=== PATIENT | female | born 1960 | race Hispanic/Latino ===

== ENCOUNTER 2017-05-30 06:25 | Emergency (ER) | payer BC ==
[2017-05-30 06:35] VITALS: TEMP 97.8; O2SAT 100
[2017-05-30] MEDS ORDERED: Sodium Chloride 0.9% 1,000 ML IV STA (06:53)
[2017-05-30] MEDS ORDERED: DiphenhydrAMINE 50 mg/ml Inj IV STA (06:53)
--- NOTE | 2017-05-30 06:59 | ED PDOC ---
HPI: Allergic Reaction Time Seen by Provider: 05/30/17 06:52 Chief Complaint (Nursing): Allergic Reaction Chief Complaint (Provider): Allergic Reaction History Per: Patient History/Exam Limitations: no limitations Onset/Duration Of Symptoms: Days (x3), Intermittent Episodes Current Symptoms Are (Timing): Still Present Possible Cause: Unknown Associated Symptoms: Skin Rash, Swelling (lip swelling), Trouble Swallowing ( throat tightness), Chest Pain (chest tightness) Home/EMS Treatment: Benadryl Additional Complaint(s): 56 year old female presents to ED with complaints of intermittent episodes of a pruritic rash x3 days and has no past medical history. (+) throat tightness, lip swelling, and mild chest tightness since this morning. (-) fever, nausea, vomiting, diarrhea, or cough. Arrival of new symptoms this morning prompted ED visit. 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 Denies recent travel or allergen exposure. PCP: Ralf Mendoza Past Medical History Reviewed: Historical Data, Nursing Documentation, Vital Signs Vital Signs: Last Vital Signs Temp 97.8 F 05/30/17 06:32 Pulse 84 05/30/17 06:32 Resp 18 05/30/17 06:32 BP 121/91 H 05/30/17 06:32 Pulse Ox 100 05/30/17 06:32 - Medical History PMH: No Chronic Diseases - Surgical History Surgical History: No Surg Hx - Family History Family History: States: No Known Family Hx - Social History Current smoker - smoking cessation education provided: No Ex-Smoker (has not smoked in the last 12 months): No Alcohol: None Drugs: Denies - Home Medications Home Medications: Ambulatory Orders Medication Instructions Recorded DiphenhydrAMINE [Benadryl] 25 mg PO Q6H PRN #28 cap 05/30/17 Famotidine [Pepcid] 20 mg PO BID #28 tab 05/30/17 predniSONE [predniSONE Tab] 40 mg PO DAILY #10 tab 05/30/17 - Allergies Allergies/Adverse Reactions: Allergies Allergy/AdvReac Type Severity Reaction Status Date / Time No Known Allergies Allergy Verified 05/30/17 06:35 Review of Systems ROS Statement: Except As Marked, All Systems Reviewed And Found Negative Constitutional: Negative for: Fever ENT: Positive for: Throat Swelling (throat tightness), Other (lip swellin) Cardiovascular: Positive for: Chest Pain (Chest tightness) Respiratory: Negative for: Cough Gastrointestinal: Negative for: Nausea, Vomiting, Diarrhea Skin: Positive for: Rash Physical Exam - Reviewed Nursing Documentation Reviewed: Yes Vital Signs Reviewed: Yes - Physical Exam Appears: Positive for: Non-toxic, No Acute Distress Skin: Positive for: Normal Color (No rash at time of ED visit), Warm, Dry Eye Exam: Positive for: Normal appearance ENT: Negative for: Normal ENT Inspection (Mild lower lip swelling) Neck: Positive for: Normal Cardiovascular/Chest: Positive for: Regular Rate, Rhythm. Negative for: Murmur Respiratory: Positive for: Normal Breath Sounds. Negative for: Respiratory Distress Gastrointestinal/Abdominal: Positive for: Normal Exam, Soft. Negative for: Tenderness Back: Positive for: Normal Inspection Extremity: Positive for: Normal ROM. Negative for: Deformity Neurologic/Psych: Positive for: Alert, Oriented. Negative for: Motor/Sensory Deficits - ECG O2 Sat by Pulse Oximetry: 100 (RA) Pulse Ox Interpretation: Normal Disposition - Clinical Impression Clinical Impression: Allergic reaction - Disposition Disposition: Transfer of Care Disposition Time: 07:00 Condition: IMPROVED Prescriptions: DiphenhydrAMINE [Benadryl] 25 mg PO Q6H PRN #28 cap PRN Reason: Itching / Pruritus Famotidine [Pepcid] 20 mg PO BID #28 tab predniSONE [predniSONE Tab] 40 mg PO DAILY #10 tab Instructions: Urticaria (ED) Forms: [employer] (Tongan), [facility] ED School/Work Excuse Patient Signed Over To: Nallely Collazo Handoff Comments: Pending ED work up Medical Decision Making Medical Decision Makin Initial impression: allergic reaction Initial plan: * Benadryl 50mg IV * NS IV * Pepcid 40mg IV * Solumedrol 125mg IVP * Re-eval Scribe Attestation: Documented by Rosina Spencer acting as a scribe for Jarod Payan MD. Scribe Attestation: All medical record entries made by the Scribe were at my direction and personally dictated by me. I have reviewed the chart and agree that the record accurately reflects my personal performance of the history, physical exam, medical decision making, and the department course for this patient. I have also personally directed, reviewed, and agree with the discharge instructions and disposition.
--- NOTE | 2017-05-30 10:39 | ED PDOC ---
- ECG O2 Sat by Pulse Oximetry: 100 (RA) Medical Decision Making Medical Decision Making: received patient from Dr. gabriel. Patient developed urticaria with sensation of throat swelling. She is improved now after meds given. 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 Disposition Doctor Will See Patient In The: Office Counseled Patient/Family Regarding: Diagnosis, Need For Followup, Rx Given - Clinical Impression Clinical Impression: Allergic reaction - POA Present On Arrival: None - Disposition Disposition: Routine/Home Disposition Time: 10:20 Condition: IMPROVED Prescriptions: DiphenhydrAMINE [Benadryl] 25 mg PO Q6H PRN #28 cap PRN Reason: Itching / Pruritus Famotidine [Pepcid] 20 mg PO BID #28 tab predniSONE [predniSONE Tab] 40 mg PO DAILY #10 tab Instructions: Urticaria (ED) Forms: [employer] [facility] (Bahamian), [facility] ED School/Work Excuse
[2017-05-30 11:06] VITALS: BP 120/65; PULSE 79; RESP 16
== END 2017-05-30 11:04 | disposition home or self-care (01) ==
LOC: H.ER 06:25
DX: T78.40XA Allergy, unspecified, initial encounter (principal)
CPT/HCPCS: 96374; 96375; 99283; J1200; J2930; J7040